=== PATIENT | female | born 1955 | race Caucasian/White ===

== ENCOUNTER 2020-11-27 20:27 | Inpatient (IN) | payer OTHER ==
[~2020-11-27] VITALS: Ht 170.2 cm; Wt 83.9 kg
[2020-11-27 22:02] VITALS: BP 153/84
--- NOTE | 2020-11-28 00:29 | NUR ---
ASSUMED CARE OF PT AT 2130HRS. PT IS AOX4 AND LETS NEEDS BE KNOWN. PT IS UP AD JAIRON. PT WAS ORIENTED TO THE UNIT AND HER ROOM. PT WAS ABLE TO ANSWER ALL ADMISSION RELATED QUESTIONS AND SIGN CONSENTS. NG IN PLACE AT 60CM THROUGH RIGHT NARE CONNECTIED TO LIS. PT IS NPO. PT REPORTED SOME NAUSEA AND ABD PAIN; PRNS PROVIDED. SCDS IN PLACE. IVF CONTINUED. VSS AND NO S/S OF ACUTE DISTRESS. WILL CONTINUE TO MONITIOR.
[2020-11-28 04:29] VITALS: BP 132/70
[2020-11-28 05:22] LABS: HEMATOCRIT 40.7 % (37.0-47.0); HEMOGLOBIN 13.5 gm/dL (12.0-15.0); MCH 31.7 pg (26.0-34.0); MCHC 33.2 g/dL (28.0-37.0); MCV 95.4 fL (80.0-100.0); RBC 4.27 mil/uL (4.20-5.00); WBC 9.5 thou/uL (4.0-11.0)
[2020-11-28 05:39] LABS: CALCIUM 7.9 mg/dL (8.5-10.1); CREATININE 0.6 mg/dL (0.6-1.0); POTASSIUM 3.8 mmol/L (3.5-5.1)
[2020-11-28 07:23] VITALS: BP 119/70
[2020-11-28 15:25] VITALS: BP 127/66
--- NOTE | 2020-11-28 19:30 | NUR ---
Assumed pt care this am, vs stable kept npo. NGT on the right nare connected to low intermittent suction, draining dark green fluid. Seen by surgery, NGT clammped, residuals to be checked every 6 hours, if nauseated or vomiting to connect back to the suction machine. Monitored closely. Steady on her gait, up ad vincenzo. POC followed, minimal pain is noted on the right nare. Endorsed to the night nurse.
[2020-11-28 19:34] VITALS: BP 113/63
--- NOTE | 2020-11-29 03:01 | NUR ---
ASSUMED CARE OF PT AT SHIFT CHANGE. PT IS AOX4 AND LETS NEEDS BE KNOWN. PT IS UP AD JAIRON. ASSESSMENT CHARTED. PT REPORTED SOME ABD PAIN; PRNS PROVIDED. PT'S PAIN WAS BETTER CONTROLLED THIS SHIFT. PT DENIED NAUSEA OR SOA. ASSESSMENT CHARTED. NG TUBE IS CLAMPED. NG RESIDUAL CHECK AT 2100= 10CC AND 0300= 5CC. PT WAS ABLE TO GET COMFORTABLE AND SLEEP PART OF THE SHIFT. VSS AND NO S/S OF ACUTE DISTRESS. WILL CONTINUE TO MONITOR.
[2020-11-29 07:35] VITALS: BP 125/77
[2020-11-29 16:05] VITALS: BP 116/58
--- NOTE | 2020-11-29 19:24 | NUR ---
Assumed pt care tbis am, vs stable. Pain managed with medications. Scant residual noted from the NGT. NGT removed as per MD orders. Started on clears advance diet as tolerated. Steady on her gait able to void in the toilet. REfused IV fluids since she is able to tolerate fluids. No nausea or vomiting noted. Endorsed to the night nurse.
[2020-11-29 19:40] VITALS: BP 123/76
[2020-11-30 04:30] VITALS: BP 1129/70
--- NOTE | 2020-11-30 04:52 | NUR ---
ASSUMED CARE OF PT AT SHIFT CHANGE. PT IS AOX4 AND LETS NEEDS BE KNOWN. PT IS UP AD JAIRON. ASSESSMENT CHARTED. PT REPORTED SOME ABD PAIN, BUT DENIED NAUSEA OR SOA. PT IS TOLERATING FULL LIQUIDS. PT IS ABLE TO PASS GAS; NO BM NOTED THIS SHIFT. PT WAS ABLE TO GET COMFORTABLE AND SLEEP PART OF THE SHIFT. VSS AND NO S/S OF ACUTE DISTRESS. WILL CONTINUE TO MONITOR FOR CHANGES.
[2020-11-30 07:40] VITALS: BP 131/61
[2020-11-30 12:21] VITALS: BP 131/61
--- NOTE | 2020-11-30 12:45 | NUR ---
Assumed pt care this am. Diet and medications are tolerated well. Had a bm this am. No nausea or vomiting was noted. DC instructions givne to the pt, IV removed. Pt is now DC and went home with the spouse.
== END 2020-11-30 12:48 | disposition home or self-care (01) | DRG 390 ==
LOC: 3W 20:27 → 4W 21:43
PROVIDERS: Nurse Practitioner Family; ADMIT Internal Medicine; ATTEND Internal Medicine
PROC: 0D9670Z Drainage of Stomach with Drainage Device, Via Natural or Artificial Opening (ICD-10-PCS; principal; 2020-11-28)
DX: K56.609 Unspecified intestinal obstruction, unspecified as to partial versus complete obstruction (principal); E78.5 Hyperlipidemia, unspecified; Z90.710 Acquired absence of both cervix and uterus; Z87.891 Personal history of nicotine dependence; Z82.49 Family history of ischemic heart disease and other diseases of the circulatory system; Z88.8 Allergy status to other drugs, medicaments and biological substances
CPT/HCPCS: 10047